=== PATIENT | female | born 1995 | race Caucasian/White ===

== ENCOUNTER 2017-05-08 19:15 | Emergency (ER) | payer OTHER ==
[~2017-05-08] VITALS: Ht 165.1 cm; Wt 167.8 kg
[~2017-05-08 19:15] MED LIST: ULTRAM 50MG TAB50 MG PO
[2017-05-08 19:41] VITALS: BP 148/86
[2017-05-08] MEDS ORDERED: NORFLEX100 MG PO (19:46)
== END 2017-05-08 20:00 | disposition home or self-care (01) ==
LOC: ER 19:15
DX: S70.12XA Contusion of left thigh, initial encounter (principal); V43.52XA Car driver injured in collision with other type car in traffic accident, initial encounter; Y93.89 Activity, other specified; Y92.488 Other paved roadways as the place of occurrence of the external cause; Y99.8 Other external cause status